=== PATIENT | female | born 1945 | race Caucasian/White ===

== ENCOUNTER 2018-12-22 19:05 | Observation (INO) ==
[2018-12-22] MEDS ORDERED: NS 500 ML IV ONE (19:37)
--- NOTE | 2018-12-22 20:07 | PROVIDER DOCUMENTATION ---
HPI-General Adult - General Chief Complaint: Weakness Stated Complaint: WEAK, UNABLE TO WALK Time Seen by Provider: 12/22/18 19:17 Source: patient Allergies/Adverse Reactions: Patient Allergies Allergy/AdvReac Type Severity Reaction Status Date / Time morphine AdvReac Intermediate Unknown Verified 12/22/18 20:46 Penicillins AdvReac Mild RASH Verified 12/22/18 20:46 Home Medications: Home Medication List Medication Instructions Recorded Confirmed Last Taken Type ATORVAstatin [Lipitor] 40 mg PO QHS 03/02/17 03/05/17 03/04/17 21:00 History Aspirin [Ecotrin] 81 mg PO QAM 03/02/17 03/05/17 03/04/17 09:00 History Buspirone [Buspar] 10 mg PO BID 03/02/17 03/05/17 03/04/17 21:00 History Citalopram [Celexa] 20 mg PO QAM 03/02/17 03/05/17 03/04/17 09:00 History Clopidogrel [Plavix] 75 mg PO QAM 03/02/17 03/05/17 03/04/17 09:00 History Famotidine 20 mg PO BID 03/02/17 03/05/17 03/04/17 21:00 History Isosorbide Mononitrate [Isosorbide 30 mg PO QAM 03/02/17 03/05/17 03/04/17 09:00 History Mononitrate ER] Levothyroxine [Synthroid] 50 microgm PO QAM 03/02/17 03/05/17 03/04/17 07:00 History Metformin [Glucophage] 500 mg PO BID 03/02/17 03/05/17 03/04/17 20:00 History Carvedilol [Coreg] 12.5 mg PO BID 03/05/17 03/05/17 03/04/17 20:00 History - History of Present Illness -Gen Adult Nature of Presenting Problems: Patient is a 73 yowf who complains of generalized weakness and SOB since last week. States today symptoms became worse and she is too weak to ambulate. Denies fever, n/v/d, abdominal pain, unilateral weakness, slurred speech, aphasia, melena, or any other symptoms. Hx of anemia- patient of Dr. Desai. She is non- toxic in appearance. Review of Systems - Adult - REVIEW OF SYSTEMS - ADULT Constitutional: reports: no symptoms reported. denies: chills, fever Eyes: reports: no symptoms reported Ears, Nose, Mouth & Throat: reports: no symptoms reported Cardiovascular: reports: no symptoms reported Respiratory: reports: see HPI, dyspnea on exertion, shortness of breath. denies: cough Gastrointestinal: reports: no symptoms reported Genitourinary: reports: no symptoms reported Musculoskeletal: reports: see HPI (generalized weakness) Integumentary: reports: no symptoms reported Neurological: reports: no symptoms reported Psychiatric: reports: no symptoms reported Endocrine: reports: no symptoms reported Hematologic/Lymphatic: reports: no symptoms reported Allergic/Immunologic: reports: no symptoms reported All Other Systems: Reviewed and Negative Past History - Adult - PAST MEDICAL HISTORY-ADULT Review of Records: reports: Nursing Assessment Review, Medications Reviewed, Social history reviewed & non-contributory. Major Childhood Illnesses: reports: denies history Cardiovascular: reports: HTN Respiratory: reports: cancer (3 years ago, now resolved) Gastrointestinal: reports: denies history Obstetrical/Gynecological: reports: denies history Genitourinary: reports: denies history Musculoskeletal: reports: denies history Neurological: reports: denies history Psychiatric: reports: denies history Endocrine/Immune: reports: anemia, Diabetes Diabetes Type: Type 2 Diabetes controlled by:: PO Meds Other Conditions: reports: denies history - PRIOR SURGERIES/PROCEDURES Surgical/Procedure History: reports: reviewed, not pertinent - FAMILY HISTORY Family History: reviewed, not pertinent - SOCIAL HISTORY Smoking: non-smoker Physical Exam-General - PHYSICAL EXAM-ADULT Initial Vital Signs Reviewed: Yes - CONSTITUTIONAL General Appearance: alert, no apparent distress. negative: lethargic, slow to respond - EYES Eyes: PERRL/EOMI - HEAD, EARS, NOSE, MOUTH & THROAT HENMT: normocephalic/atraumatic, moist mucous membranes - NECK Neck: full range of motion, supple, normal inspection - RESPIRATORY Respiratory: chest non-tender, lungs clear, normal breath sounds, no pleuratic chest pain, no respiratory distress, no accessory muscle use - CARDIOVASCULAR Cardiovascular: regular rate, rhythm, no gallop, no murmur, tachycardia - GASTROINTESTINAL (ABDOMEN) Abdominal Exam: normal bowel sounds, non tender, soft, no organomegaly, no pulsatile mass. negative: distended, guarding, rigid, rebound, tenderness, hernia, mass - MUSCULOSKELETAL Back Exam: normal inspection Extremity: normal range of motion, non-tender, normal inspection Peripheral Pulses: radial (R): 3+, radial (L): 3+ - SKIN Integumentary: normal color, warm/dry, other (pt appears pale). negative: cyanosis, diaphoresis, jaundice - NEUROLOGIC Neurologic: grossly normal, no motor/sensory deficits - PSYCHIATRIC Psych/Mental Status: normal mood/affect, normal thought content, normal thought process, oriented x 3 Progress - PLAN OF CARE/RESULTS Progress/Plan/Lab Results: Vital Signs - 8 hr 12/22/18 19:11 Temperature 97.9 F Pulse Rate 133 H Respiratory Rate 20 Blood Pressure 106/74 O2 Sat by Pulse Oximetry 96 Laboratory Results - last 24 hr 12/22/18 19:32 POC Glucose 342 H Orders Category Date Time Status Cardiac Monitoring DIRECTED Care 12/22/18 19:37 Active CHEST-2 VIEWS [RAD] Stat Exams 12/22/18 19:37 Taken CBC WITH DIFF [HEME] Stat Lab 12/22/18 19:36 Ordered COMPREHENSIVE METABOLIC PANEL [CHEM] Stat Lab 12/22/18 19:36 Uncollected MAGNESIUM [CHEM] Stat Lab 12/22/18 19:37 Uncollected OCCULT BLOOD SCREENING [STOOL] Stat Lab 12/22/18 19:37 Uncollected PRO B-NATRIURETIC PEPTIDE Stat Lab 12/22/18 19:37 Uncollected PROTIME WITH INR [COAG] Stat Lab 12/22/18 19:37 Uncollected PTT [COAG] Stat Lab 12/22/18 19:37 Uncollected TROPONIN T Stat Lab 12/22/18 19:37 Uncollected TYPE & SCREEN [BBK] Stat Lab 12/22/18 19:37 Uncollected UA NIMS W/REFLEX CULT [URINALYSIS] Stat Lab 12/22/18 19:37 Uncollected 0.9% Sodium Chloride Inj [Ns] 500 ml Med 12/22/18 19:37 Active IV 999 mls/hr EKG [EKG] Stat Ther 12/22/18 19:14 Ordered Result Diagrams: 12/22/18 20:30 12/22/18 20:30 - REASSESSMENT Reassessment #1 Time Reassessed: 22:45 Status: other (Dr. Lloyd nino. HR 88.) Reassessment #2 Time Reassessed: 23:10 Status: other (Pt refuses blood transfusion. States that her H&H is stable for her and that she wants to see Dr. Desai prior to receiving blood. Blood bank notified. Dr. Travis also aware.) - EKG 1 Time of EKG reading by physician:: 19:20 EKG Read and Signed by:: Eduard Hines EKG Interpretation (*Must complete 3 of following elements*): Abnormal Rate: 92 Rhythm: NSR with sinus arrhythmia QRS: normal ST Wave: normal - XRAY 1 XRAY Study: Chest ([facility] - [address] [place] [address], [address], [place] [address] [facility] - [address] [place] [address] Department of Imaging Patient: ROBINSON DANIELS Date: 12/22/18#: [id number] : 1945DM Status: PRE ERAcct#: [id number] Age/Sex: 73/FRoom/Bed: Loc: ED Ordering Physician: Norman Armendariz Family Physician: Almas Estrella Reason for Procedure: weakness, SOB ___ Signed CHEST-2 VIEWS - 12/22/2018 INDICATION: weakness, SOB COMPARISON: None FINDINGS: The lungs are normally expanded and clear. Heart size and mediastinal contours are normal. No pneumothorax or pleural effusion. IMPRESSION: Negative exam. Electronically signed by Chace Williamson 12/22/2018 8:04 PM 12/22/182003 Interpreting Physician: Chace Williamson MD Dictated Date/Time: 12/22/182002 cc: Norman Armendariz; Almas Estrella) - CONSULTS/PCP/HOSPITALIST Notification #1 *Consult/PCP/Hospitalist*: Dr. Desai Time Discussed: 22:59 Reason/Comments: anemia, weakness, SOB, hx of anemia, pt known to him Consult Disposition: other (Md recommends admission to [facility]. States to consult him and he will see pt tomorrow.) #2 Consult: Dr. Travis Time Discussed: 23:09 Reason/Comments: admission- generalized weakness, anemia, SOB, renal insufficiency Consult Disposition: Will see in ED, Admit Departure - Departure Date of Disposition Decision: 12/22/18 Time of Disposition Decision: 22:45 DIAGNOSIS: Generalized weakness, SOB (shortness of breath), Renal insufficiency, Hyperglycemia Anemia Qualifiers: Anemia type: unspecified type Qualified Code(s): D64.9 - Anemia, unspecified Disposition: ADMITTED INPATIENT 09 Certified Medical Emergency: Emergent Condition: Stable Referrals and Follow-Ups: Almas Estrella [Primary Care Provider] - - Critical Care Note This patient required my direct & personal management of CC.: No Attestation - Physician/ JAMIE Attestation Patient care was provided by Advanced Practice Provider:: Yes Advanced Practice Provider:: Norman Armendariz Advanced Practice Provider documentation review:: The Mid-level provider documentation, treatment plan and medical decision making was reviewed by the physician who agrees with all treatment and medical decision making by the MLP. The physician spent face to face time with patient:: No Advanced Practice Provider documentation review:: Supervising physician onsite and consulted in the evaluation and care of this patient. The physician did not have a face to face encounter with the patient.
[2018-12-22 21:06] LABS: PROTIME 13.3 Seconds (11.0-16.0); PTT 28.6 Seconds (22.3-41.8)
[2018-12-22 21:19] LABS: ALB/GLOB RATIO 1.4; ALBUMIN 3.8 g/dL (3.5-5.0); CALCIUM 8.9 mg/dL (8.8-10.2); CREATININE 1.5 mg/dL (0.5-0.9); TOTAL BILIRUBIN 0.68 mg/dL (0.20-1.00); TOTAL PROTEIN 6.6 g/dL (6.3-8.3)
[2018-12-22 21:32] LABS: URINE SOURCE CLEAN CATCH
[2018-12-22 21:34] LABS: BASO# 0.03 X1000 (0.0-0.2); BASO% 0.3 % (0.0-0.8); EOS# 0.18 X1000 (0.0-0.7); EOS% 2.1 % (0.0-10.0); HEMATOCRIT 23.9 % (37.0-47.0); HEMOGLOBIN 8.2 g/dL (12.0-16.0); IMM GRAN# 0.02 X1000 (0.0-0.04); IMM GRAN% 0.2 % (0.0-0.5); LYMPH# 1.85 X1000 (1.2-3.4); LYMPH% 21.3 % (20.5-51.1); MCH 33.7 PG (27-31); MCHC 34.3 g/dL (33-37); MCV 98.4 FL (81-99); MONO# 0.73 X1000 (0.11-0.59); MONO% 8.4 % (1.7-9.3); MPV 11.3 FL (7.4-10.4); NEUT# 5.87 X1000 (1.4-6.5); NEUT% 67.7 % (42.2-75.2); PLT 142 X1000 (130-400); RBC 2.43 XMIL (4.2-5.4); RDW 18.3 % (11.5-14.5); WBC 8.68 X1000 (4.8-10.8)
[2018-12-22 21:38] LABS: BILIRUBIN URINE NEGATIVE (NEGATIVE); BLOOD URINE NEGATIVE (NEGATIVE); COLOR YELLOW; GLUCOSE URINE 1000 mg/dL (NEGATIVE); KETONE URINE NEGATIVE (NEGATIVE); LEUKOCYTES URINE NEGATIVE (NEGATIVE); NITRITE URINE NEGATIVE (NEGATIVE); PROTEIN URINE 200 mg/dL (NEGATIVE); TURBIDITY URINE CLEAR (CLEAR); UROBILINOGEN URINE NORMAL (NORMAL)
[2018-12-22 21:39] LABS: UR EPITHELIAL CELLS <10 /HPF (<10); URINE BACTERIA NEGATIVE /HPF; URINE RBC <10 /HPF (<10); URINE WBC <10 /HPF (<10)
--- NOTE | 2018-12-22 22:42 | EKG Report ---
Test Performed on : 12/22/2018 7:18:12 PM Test Reason : weakness Blood Pressure : / mmHG Vent. Rate : 092 BPM Atrial Rate : 092 BPM P-R Int : 192 ms QRS Dur : 084 ms QT Int : 364 ms P-R-T Axes : 025 -04 056 degrees QTc Int : 450 ms Normal sinus rhythm. with sinus arrhythmia. Normal ECG No previous ECGs available Unconfirmed Result
[2018-12-22] MEDS ORDERED: HUMULIN R SUBQ ONE (23:11)
[2018-12-23] MEDS ORDERED: TYLENOL PO PRN (00:34)
[2018-12-23] MEDS ORDERED: NS 1,000 ML IV SCH (00:34)
[2018-12-23] MEDS ORDERED: ZOFRAN IV PRN (00:34)
[2018-12-23] MEDS: HUMALOG SUBQ SCH ×5 (02:04→20:59)
[2018-12-23 07:56] LABS: BASO# 0.03 X1000 (0.0-0.2); BASO% 0.4 % (0.0-0.8); EOS# 0.18 X1000 (0.0-0.7); EOS% 2.7 % (0.0-10.0); HEMATOCRIT 22.7 % (37.0-47.0); HEMOGLOBIN 7.6 g/dL (12.0-16.0); LYMPH# 1.75 X1000 (1.2-3.4); LYMPH% 25.8 % (20.5-51.1); MCHC 33.5 g/dL (33-37); MCV 98.7 FL (81-99); MONO# 0.57 X1000 (0.11-0.59); MONO% 8.4 % (1.7-9.3); MPV 11.3 FL (7.4-10.4); NEUT# 4.24 X1000 (1.4-6.5); NEUT% 62.7 % (42.2-75.2); PLT 122 X1000 (130-400); RDW 18.4 % (11.5-14.5); WBC 6.77 X1000 (4.8-10.8)
--- NOTE | 2018-12-23 08:03 | HISTORY AND PHYSICAL ---
PRIMARY CARE PHYSICIAN: Dr. Almas Estrella ONCOLOGIST: Dr. Desai CHIEF COMPLAINT: Weakness. HISTORY OF PRESENT ILLNESS: Ms. Mccurdy is a 73-year-old female who comes into the emergency room with the complaint of weakness. She stated that she has had generalized weakness and mild shortness of breath since last week. This Sunday, I believe she went and saw Dr. Desai, but apparently since that time, she has become too weak to ambulate well. She denies any associated symptoms such as fever, nausea, vomiting, diarrhea, GI or symptoms. She has a history of anemia which she sees Dr. Desai for. Her hemoglobin and hematocrit were 8.2 and 23.9, respectively. She will be admitted to observation for further evaluation and treatment. PAST MEDICAL HISTORY: 1. Lung cancer, status post thoracotomy. 2. Coronary artery disease. 3. Hypertension. 4. Hyperlipidemia. 5. Diabetes mellitus type 2. 6. Hypothyroidism. 7. Renal stenting. PAST SURGICAL HISTORY: 1. Right-sided thoracotomy. 2. Appendectomy. 3. Cholecystectomy. SOCIAL HISTORY: No tobacco, alcohol or illicit drugs. FAMILY HISTORY: Both mother and father at age 84. Father from a CVA. Denies medical history in mother. ALLERGIES: Morphine and penicillin. HOME MEDICATIONS: Famotidine 20 mg p.o. b.i.d., atorvastatin 40 mg p.o. nightly at bedtime, Celexa 20 mg p.o. q.a.m., isosorbide 30 mg p.o. q.a.m., Plavix 75 mg p.o. q.a.m., BuSpar 10 mg p.o. b.i.d., aspirin 81 mg p.o. q.a.m., metformin 500 mg p.o. b.i.d., levothyroxine 50 mcg p.o. q.a.m., vitamin D3 1000 units p.o. daily, vitamin D2 50,000 units 1 tablet p.o. q.7, Mirabegron 125 mg tablet daily, carvedilol 3.125 mg p.o. b.i.d. REVIEW OF SYSTEMS: A 10-point review of systems was conducted with the patient, and pertinent positives listed above in the HPI. All other systems reviewed and found to be negative. PHYSICAL EXAMINATION: VITAL SIGNS: Temperature 98.4, pulse 73, respirations 18, blood pressure 133/61, oxygen saturation 98% on room air. GENERAL: A 73-year-old female lying on the ER stretcher, answered all questions appropriately. She is slightly pale in appearance but no acute distress. HEENT: Head is atraumatic and normocephalic. Pupils are equal, round and reactive to light. Extraocular eye movements intact. Sclerae anicteric. Conjunctivae are pale. Oral mucosa is mildly dry. NECK: Supple. No JVD. No thyromegaly. Trachea is midline. No cervical lymphadenopathy. CARDIAC: S1, S2 appreciated. No murmurs, gallops or rubs. LUNGS: Clear to auscultation bilaterally. No rhonchi, wheezes or rales. Symmetrical rise and fall with respirations. ABDOMEN: Soft, nondistended and nontender. Bowel sounds present in all 4 quadrants, normoactive. No pulsatile mass or organomegaly. EXTREMITIES: No cyanosis, clubbing or edema. There are 2+ pedal pulses bilaterally. GENITOURINARY: No bladder distention. The patient voids. Otherwise deferred. NEUROLOGICAL: Alert and oriented x3. Cranial nerves II through XII grossly intact. DIAGNOSTIC DATA: Chest x-ray with no acute disease. Laboratory data shows WBC of 8.68, hemoglobin 8.2, hematocrit 23.9, platelet count 142. Coags within normal limits. Sodium is 136, potassium 5, chloride 105, carbon dioxide 21, BUN is 26, creatinine 1.5, glucose 308. Urine unremarkable. ASSESSMENT AND PLAN: 1. Weakness. This is likely related to the patient's underlying anemia; however, she states that her blood counts are normal. She does not want transfusion until seeing Dr. Desai. We will consult Dr. Desai for tomorrow a.m., place the patient in observation status. 2. Anemia. I am unsure if this is related to chronic disease or chronic inflammation related to her previous lung cancer. As noted, we will consult Dr. Desai. We will order anemia panel. 3. Diabetes mellitus type 2 with hyperglycemia. Fingerstick blood sugar and sliding scale insulin. Check hemoglobin A1c. 4. Hyperlipidemia. Continue statin. 5. Coronary artery disease. Aware. Continue home medication. Further recommendations bases on the patient's clinical course. Dictated by MILAGRO Franklin for Damien Travis MD I have performed a face to face diagnostic evaluation. Labs/ xrays- reviewed. Exam- Chest- clear, CV- regular. A/P- Weakness, anemia- Admit, Supportive treatment, Monitor H/H- Hematology consult. Dr. Travis cc: MILAGRO Franklin MD Robert Hall, MD Naveen T. Lobo, MD [facility]PITALIgor
[2018-12-23 08:09] LABS: HEMOGLOBIN A1C 6.2 % (4.8-6.0)
[2018-12-23 08:20] LABS: CALCIUM 8.8 mg/dL (8.8-10.2); CREATININE 1.3 mg/dL (0.5-0.9); POTASSIUM 4.5 mmol/L (3.5-5.1)
[2018-12-23 08:34] LABS: FERRITIN 1842 ng/mL (13-150)
[2018-12-23 09:50] LABS: RETIC% 3.61 % (0.8-2.1); RETIC-HE 34.6 PG (28.2-36.6)
[2018-12-23] MEDS: PEPCID PO SCH ×2 (10:45→20:59)
[2018-12-23] MEDS: IMDUR PO SCH (10:45)
[2018-12-23] MEDS: CELEXA PO SCH (10:45)
[2018-12-23] MEDS: COREG PO SCH ×2 (10:45→20:59)
[2018-12-23] MEDS: BUSPAR PO SCH ×2 (10:45→20:59)
[2018-12-23] MEDS: ASPIRIN EC PO SCH (10:45)
[2018-12-23] MEDS: VITAMIN D PO SCH (10:46)
[2018-12-23] MEDS: SYNTHROID PO SCH (10:46)
[2018-12-23] MEDS: PLAVIX PO SCH (10:46)
[2018-12-23] MEDS: MYRBETRIQ E.R. PO SCH (10:46)
--- NOTE | 2018-12-23 12:34 | Diag Imaging Result Doc PS360 ---
EXAM: CT THORAX W/O CONTRAST 12/23/2018 HISTORY: r/o pna TECHNIQUE: This exam was performed using automated exposure control, adjustment of mA or kV according to patient size, and/or use of iterative reconstruction technique. COMMENT: There is a right pleural effusion. There are some pleural calcifications on the right posterior medially. There are patchy areas of ill-defined opacity and increased interstitial markings in both lungs but no dense consolidation is present, and in comparison with the previous study of 09/11/2018 and the previous examination of 09/27/2016 the appearance of the pulmonary parenchyma is similar to the previous studies with the exception of the absence of the right lower lobe on the current study. The regional skeleton is stable in appearance. There has been previous resection of the right lower lobe. There is a small hiatal hernia. There is extensive calcification in the left coronary artery. There is a calcified node in the left hilum. There are number of nonspecific aorticopulmonary window nodes and there is a right paratracheal node measuring over 2 cm in long axis. This is smaller than on 09/27/2016. IMPRESSION: Right pleural effusion and postsurgical changes. Diminished mediastinal adenopathy since 09/27/2016. The possibility of minimal interstitial pulmonary edema or pneumonia superimposed on fibrosis cannot be excluded. Electronically signed by John Gamez 12/23/2018 12:31 PM
--- NOTE | 2018-12-23 13:04 | HEMO/ONC CONSULTATION ---
DATE: 12/23/2018 CHIEF COMPLAINT: Weakness. HISTORY OF PRESENT ILLNESS: Ms. Mccurdy is a 73-year-old female who came to the emergency department last night with complaints of severe weakness that has been ongoing for this past week. The patient has a history of chronic anemia, lung cancer, and cold agglutinin disease. She was seen last Sunday in the office for routine followup regarding her diagnoses. She explained to me that she has become significantly fatigued over the last several months. We evaluated her anemia which remained stable. Her iron profile was adequate. She was found to have a severely low vitamin D2 level of 12. Last Sunday, the patient's hemoglobin and hematocrit were 10.3 and 29.9, and her reticulocyte count was 3.0. The patient was started on weekly 50,000 units of vitamin D and 1000 units of daily vitamin D. 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 She did 4 treatments of rituximab between 08/26/2018 and 09/16/2018. She is aware that she needs to avoid any cold sensitivities and keep her body physically warm. The patient's lung cancer diagnosis was on 11/24/2016. She is status post right lower lobectomy and mediastinal lymph node dissection. She gets PET scans every 6 months. Her last PET scan showed no evidence of recurrent disease. PAST MEDICAL HISTORY: 1. Lung cancer, status right lower lobectomy. 2. Coronary artery disease. 3. Hypertension. 4. Hyperlipidemia. 5. Diabetes mellitus type 2. 6. Hypothyroidism. 7. Renal stenting. 8. Chronic normocytic anemia. 9. Cold agglutinin disease. PAST SURGICAL HISTORY: Right lower lobectomy and mediastinal lymph node dissection, appendectomy, cholecystectomy, and coronary stent. SOCIAL HISTORY: Patient denies tobacco, alcohol, or illicit drug use. ALLERGIES: Morphine and penicillin. HOME MEDICATIONS: Famotidine, atorvastatin, Celexa, isosorbide, Plavix, BuSpar, aspirin, metformin, levothyroxine, vitamin D3, vitamin D2, mirabegron, and carvedilol. REVIEW OF SYSTEMS: Negative except what is in the HPI. VITAL SIGNS: Temperature 97.8 degrees, pulse rate 93, respiratory rate 16, blood pressure 138/67, O2 saturation 95% on room air. She is in 0/10 pain. PHYSICAL EXAMINATION: General: This is a petite, elderly female in no acute distress. She has a healthy weight with a BMI of 24.4. Skin: Pale, dry, and intact without lesions or rashes. HEENT: Sclerae are anicteric. PERRLA. Conjunctivae are pale. Oral mucosa is pink and moist. Cardiovascular: Normal S1, S2. Heart rate and rhythm are regular. Respiratory: No signs of respiratory distress. Lung sounds are clear to auscultation. Lymphatic: No lymphadenopathy to the head, neck, or axillae area. Neurological: Awake, alert, and oriented. No acute abnormalities appreciated. Musculoskeletal: Upper and lower extremities are atraumatic in appearance without edema or deformity. Abdominal Examination: Abdomen is soft, symmetric, and nontender, without distention. LABORATORY: WBCs 6.77, hemoglobin 7.6, hematocrit 22.7, platelet count 122,000, ANC 4.24. Sodium 139, potassium 4.5, creatinine 1.3. Iron 47, iron percent saturation 26%, ferritin 1842, LDH 270, vitamin B12 of 470, folate 13.5. RADIOLOGY: Chest x-ray is negative. Chest CT is currently pending. ASSESSMENT: 1. Weakness. 2. Cold agglutinin disease. 3. CAD PLAN: We have added some stat labs to be added to the blood that was drawn this morning to evaluate the patient further. Dr. Desai will review these and discuss the plan with the patient as soon as possible. The patient wants to avoid a blood transfusion unless absolutely necessary. She was started on vitamin D2 and vitamin D3 this week for severe vitamin D deficiency. The patient needs to remain warm. Her room needs to be kept warm and the patient needs to be covered with appropriate clothing to prevent hemolysis from being cold. Dictated by MILAGRO Khalil for Paul Desai MD Patient seen and examined. She has cold hemolysis anemia. Keep room warm. IV fluids, medications and blood products need to be warmed up. Will follow with you. Thanks. Paul Desai MD cc: Paul Desai MD [facility]
[2018-12-23] MEDS ORDERED: TYLENOL PO ONE (13:27)
[2018-12-23] MEDS ORDERED: BENADRYL PO ONE (13:28)
[2018-12-23] MEDS ORDERED: LIPITOR PO SCH (21:00)
[2018-12-24] MEDS: HUMALOG SUBQ SCH (05:59)
[2018-12-24 07:52] VITALS: BP 107/58
[2018-12-24 08:18] LABS: CALCIUM 8.9 mg/dL (8.8-10.2); CREATININE 1.4 mg/dL (0.5-0.9)
--- NOTE | 2018-12-24 08:33 | HEMO/ONC PROGRESS NOTE ---
DATE: 12/24/2018 HPI/SUBJECTIVE: The patient is sitting up on the bedside visiting with family this morning. She states she feels much better than she did yesterday. Her fatigue is improved, as is her weakness. She states she had 2 units transfused yesterday without complication. She is continuing to remain warm. We discussed the addition of protein shakes and her attempting to do exercises in her room 3 times a day. OBJECTIVE: Vital signs: Temperature 97.4 degrees, pulse rate 81, respiratory rate 16, blood pressure 107/58, O2 saturation 97% on room air. She is in 0/10 pain. General: On physical examination, this is an elderly-appearing female in no acute distress. Skin: Pale, warm, dry, and intact without lesions or rashes. HEENT: Sclerae is anicteric. PERRLA. Conjunctiva is pink. Oral mucosa is pink and moist. Cardiovascular: Normal S1, S2. Heart rate and rhythm is regular. Respiratory: No signs of respiratory distress. Lung sounds are clear to auscultation. Neurological: Awake, alert, and oriented x3. No gait abnormalities appreciated. Gastrointestinal: Abdomen is soft, symmetric, and nontender without distention. LABORATORY: Hgb 11.3; Hct 34.5 ASSESSMENT: 1. Weakness. 2. Cold hemolysis anemia. 3. CAD PLAN: The patient was transfused 2 units yesterday. We will evaluate what her hemoglobin and hematocrit are today, and again at 6 p.m. tonight to see if it is holding. The patient has cold agglutinin disease, which means she will have hemolysis if she is cold. 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 The patient has been instructed to do exercises 3 times a day to improve her weakness. She has also been instructed to drink several protein shakes. If the patient's hemoglobin and hematocrit are stable tomorrow morning, she will be able to be discharged from our standpoint. We are continuing to monitor closely. Dictated by MILAGRO Khalil for Paul Desai MD cc: Paul Desai MD [facility]
[2018-12-24 08:40] LABS: BASO# 0.03 X1000 (0.0-0.2); BASO% 0.3 % (0.0-0.8); EOS# 0.19 X1000 (0.0-0.7); EOS% 2.2 % (0.0-10.0); HEMATOCRIT 34.5 % (37.0-47.0); HEMOGLOBIN 11.3 g/dL (12.0-16.0); IMM GRAN# 0.02 X1000 (0.0-0.04); IMM GRAN% 0.2 % (0.0-0.5); LYMPH# 1.92 X1000 (1.2-3.4); LYMPH% 22.3 % (20.5-51.1); MCH 30.7 PG (27-31); MCHC 32.8 g/dL (33-37); MCV 93.8 FL (81-99); MONO# 0.46 X1000 (0.11-0.59); MONO% 5.3 % (1.7-9.3); MPV 11.2 FL (7.4-10.4); NEUT# 5.98 X1000 (1.4-6.5); NEUT% 69.7 % (42.2-75.2); PLT 129 X1000 (130-400); RBC 3.68 XMIL (4.2-5.4)
[2018-12-24] MEDS: BUSPAR PO SCH (09:36)
[2018-12-24] MEDS: COREG PO SCH (09:36)
[2018-12-24] MEDS: MYRBETRIQ E.R. PO SCH (09:36)
[2018-12-24] MEDS: CELEXA PO SCH (09:36)
[2018-12-24] MEDS: PEPCID PO SCH (09:36)
[2018-12-24] MEDS: PLAVIX PO SCH (09:36)
[2018-12-24] MEDS: ASPIRIN EC PO SCH (09:36)
[2018-12-24] MEDS: SYNTHROID PO SCH (09:36)
[2018-12-24] MEDS: VITAMIN D PO SCH (09:36)
[2018-12-24] MEDS: IMDUR PO SCH (09:36)
--- NOTE | 2018-12-24 11:44 | DISCHARGE SUMMARY ---
ADMISSION DATE: 12/23/2018 DISCHARGE DATE: 12/24/2018 PRIMARY CARE PROVIDER: Dr. Almas Estrella. ONCOLOGIST: Dr. Desai. PERTINENT PROCEDURES: 1. Chest x-ray. Negative exam. 2. Chest CT. Right pleural effusion and postsurgical changes. Diminished mediastinal adenopathy since 09/27/2016. Possibly minimal interstitial pulmonary edema or pneumonia superimposed on fibrosis cannot be excluded. INITIAL DISCHARGE DIAGNOSES: 1. Weakness. Improved after transfusion. 2. Anemia. 3. Diabetes mellitus type 2 with hyperglycemia. 4. Hyperlipidemia. 5. Coronary artery disease. Aware. DISCHARGE DIAGNOSES: 1. Weakness, improved after packed red blood cells. 2. Cold agglutinin disease. The patient has been educated to stay warm and instructed to exercise 3 times a day to improve her weakness as well as add several protein shakes to her diet. 3. Chronic normocytic anemia. HOSPITAL COURSE: Briefly, Ms. Mccurdy is a 73-year-old female who presented to the ED with complaint of weakness, mild shortness of breath. She had seen Dr. Desai this past Sunday but since that time had became too weak to ambulate. Her hemoglobin and hematocrit was 8 and 23. She was admitted for observation status for further evaluation and treatment. Dr. Desai was consulted. She was transfused with 2 units of blood. Her hemoglobin and hematocrit came up to 11 and 34. She was educated to remain warm as well as instructed to exercise 3 times a day to help improve her weakness, as well as add protein shakes to her diet. Her fatigue as well as her weakness have also improved, and she will be discharged back home to follow up with her PCP and Dr. Desai. VITAL SIGNS: At time of discharge, temperature is 97.4 degrees, heart rate 81, respirations 18, blood pressure 107/58, O2 is 97% on room air. DISCHARGE DIET: Diabetic with Ensure. DISCHARGE MEDICATIONS: 1. Lipitor 40 mg p.o. at bedtime. 2. BuSpar 10 mg p.o. b.i.d. 3. Celexa 20 mg p.o. q.a.m. 4. Coreg 3.125 mg p.o. b.i.d. 5. Coreg 12.5 mg p.o. b.i.d. 6. Aspirin 81 mg p.o. q.a.m. 7. Pepcid 20 mg p.o. b.i.d. 8. Glucophage 500 mg p.o. b.i.d. 9. Isosorbide mononitrate ER 30 mg p.o. q.a.m. 10. Myrbetriq 25 mg tablet p.o. daily. 11. Plavix 75 mg p.o. q.a.m. 12. Synthroid 50 mcg p.o. q.a.m. 13. Vitamin D2 1 tablet p.o. 7 days on . 14. Vitamin D3, 1000 units p.o. daily. FOLLOWUP: Ms. Mccurdy is being discharged back home with self care. She is to continue to stay warm and exercise 3 times daily to her regimen as well as protein shakes. She is to follow up with her PCP as well as Dr. Desai. She can return to the ED or call 911 for any worsening of symptoms. Dictated by MILAGRO Sloan for Krunal Hernadez MD Addendum: Patient seen and examined by myself. Agree with [facility] note. It reflects my assessment and plan. Patient is being discharged in stable condition. Will be seen by Dr. Desai in a week. cc: MD Paul Trejo MD Cesar Garcia-Rodriguez, MD MTDD
[2018-12-26] MEDS ORDERED: VITAMIN D PO SCH (06:30)
== END 2018-12-24 13:20 | disposition home or self-care (01) ==
LOC: ED 19:05 → 1N 12-23 00:07 → INTOOBSV 12-23 00:07 → SUATTDRO 12-23 00:07
PROVIDERS: ATTEND Internal Medicine